=== PATIENT | female | born 1995 | race Caucasian/White ===

== ENCOUNTER 2017-08-20 19:11 | Emergency (ER) | payer OTHER ==
[2017-08-20 19:44] VITALS: BP 137/88; PULSE 106; RESP 22; TEMP 99.2; O2SAT 99
[2017-08-20] MEDS ORDERED: AZITHROMYCIN 250 MG TAB PO ONE (20:51)
[2017-08-20] MEDS ORDERED: AZITHROMYCIN 250 MG TAB ONE (20:55)
== END 2017-08-20 21:02 | disposition home or self-care (01) ==
LOC: ED 19:11
DX: B27.90 Infectious mononucleosis, unspecified without complication (principal); J02.9 Acute pharyngitis, unspecified
CPT/HCPCS: 99282; 99283